=== PATIENT | female | born 1995 | race Caucasian/White ===

== ENCOUNTER → 2019-02-04 19:20 | Observation (INO) ==
[2019-02-04 15:57] VITALS: BP 118/74
[2019-02-04 16:31] LABS: Amphetamine Screen,Urine Negative ng/mL (Cutoff=1000); Barbiturate Screen,Urine Negative ng/mL (Cutoff=200); Benzodiazepines Screen,Urine Negative ng/mL (Cutoff=200); Cannabinoid Screen,Urine Negative ng/mL (Cutoff = 50); Cocaine Screen,Urine Negative ng/mL (Cutoff= 300); Opiate Screen,Urine Negative ng/mL (Cutoff=300); Phencyclidine Screen,Urine Negative ng/mL (Cutoff=25)
--- NOTE | 2019-02-04 16:39 | OB/GYN History & Physical ---
Date of Encounter: 02/04/19 Time of Encounter: 16:35 Assessment and Plan (1) 33 weeks gestation of Current visit: Yes Status: Acute 23yo female who presents s/p fall at 33+4wks GA 1. R/o Abruption - s/p fall on bottom (buttox) at 1200 - denies n/v/d, denies VB/LOF/contraction(S) - reports active movement - RH positive, no rhogam recommended - will hold on labs for now, no direct abdominal trauma - normal abdominal examination, slight MUS soreness appreciated - CEFM for 4 hours, if normal, will give patient precaution(s) Dispo: CEFM x 4 hr, if RNST for GA, will give precaution(S) and plan for DC to home. No vaginal bleeding. MD MARIA DEL CARMEN (2) Trauma during Current visit: Yes Status: Acute History of Present Illness Chief complaint: Patient fell HPI: Ms. RUBIO is a 23 year old female at 33+2 wks GA who presents after concern for falling UTD PNC with Dr. Savage, was seen in office this morning. Patient presented for JOSE ANTONIO visit and was doing well. Active fetus, denied VB/LOF/contraction(s). Good FM at that time. She called after falling around noon. Presented to office again at 3PM and was scheduled to see Dr. Riddle. Reported to have fallen on her bottom directly, and now is having discomfort circumferentially surrounding abdomen. Still with movement. PLan to keep patient for at least 4hr of CEFM. RH positive, no rhogam recommended. Past Med Surg Social Fam HX - Past Medical History Medical history: no medical history Psychiatric history: no psych history - Past Surgical History Surgical History: other Additional surgical history: wisdom teeth - Social History Smoking Status: Never smoker Alcohol use: none Drug use: none - Family History Mother Age: 51 Living Status: Still Living Hx Family Cardiac Disorders: No Hx Family Respiratory Disorders: No Hx Family Cancer: No Hx Family GI Disorders: No Hx Family Genitourinary Disorders: No Hx Family Endocrine Disorder: No Hx Family Musculoskeletal Disorders: No Hx Family Neuromuscular Disorders: No Hx Family Neurologic Disorders: No Hx Family HEENT Disorders: No Hx Family Autoimmune Disorders: No Hx Family Reproductive Disorders: No Hx Family Psychosocial Disorders: No Hx Family Medical Disorders: No Obstetrical History - Pregnancies : 1 Medications and Allergies Vitamin Tablet 1 / PO DAILY 02/04/19 [History] Allergy/AdvReac Type Severity Reaction Status Date / Time No Known Allergies Allergy Verified 02/04/19 15:57 Exam - Vital Signs Vital signs: Initial Vital Signs Temp Pulse Resp BP Pulse Ox 99.4 F 98 14 118/74 99 02/04/19 15:51 02/04/19 15:51 02/04/19 15:51 02/04/19 15:51 02/04/19 15:51 - Constitutional Constitutional: well developed, well nourished, no acute distress, average body habitus - HEENT HEENT: Normocephaly, Mucus Membranes Moist - Neck Neck exam: full ROM - Cardiovascular Cardiovascular exam: RRR - Abdomen Abdomen: Present: bowel sounds normal - Vagina Vagina: Present: normal moisture - Uterus Uterus exam: Present: normal size, normal contour - Anus/Rectum Anus/Rectum: Present: normal perianal skin, heme negative Results All other labs normal. - VTE Reasons for not Prescribing Prophylaxis: Treatment not Indicated - Low risk for VTE
[~2019-02-04 19:20] MED LIST: Ringers Solution, Lactated 1,000 ML IVC ONE; Ringers Solution, Lactated 1,000 ML IVC SCH; Ringers Solution, Lactated 1,000 ML ONE
== END | disposition home or self-care (01) ==
LOC: 1NENULAB
PROVIDERS: ADMIT Registered Nurse; ATTEND Registered Nurse

== ENCOUNTER → 2019-03-14 18:45 | Observation (INO) ==
--- NOTE | 2019-03-14 18:39 | OB/GYN Progress Note ---
Date of Encounter: 03/14/19 Time of Encounter: 18:39 - Assessment and Plan (1) Encounter for suspected PROM, with rupture of membranes not found Current Visit: Yes Status: Acute SSE show thick white normal discharge of ferning negative. Discharged home with labor and when to return to triage precautions. Subjective - Subjective Interval history: Pt states felt more leaking of fluid during [facility] today and some when standing since. Reports good movement, denies vaginal bleeding or leaking of fluid Antepartum ROS: loss of fluid, vaginal bleeding, movement normal, contractions Objective - Vital Signs Vital Signs: Intake and Output 03/14/19 03/14/19 03/14/19 07:59 15:59 23:59 Other: Weight 93.3 kg Patient Weight 03/14/19 23:59 Weight 93.3 kg - Exam FHR: auscultation normal Cervical dilation: 1.5/80/-2
[2019-03-14 18:45] LABS: Amphetamine Screen,Urine Negative ng/mL (Cutoff=1000); Barbiturate Screen,Urine Negative ng/mL (Cutoff=200); Benzodiazepines Screen,Urine Negative ng/mL (Cutoff=200); Cannabinoid Screen,Urine Negative ng/mL (Cutoff = 50); Cocaine Screen,Urine Negative ng/mL (Cutoff= 300); Opiate Screen,Urine Negative ng/mL (Cutoff=300); Phencyclidine Screen,Urine Negative ng/mL (Cutoff=25)
== END | disposition home or self-care (01) ==
LOC: 1NENULAB
PROVIDERS: ADMIT Advanced Practice Midwife; ATTEND Advanced Practice Midwife

== ENCOUNTER 2019-03-24 12:59 | Inpatient (IN) ==
[2019-03-24] MEDS ORDERED: Lidocaine 1% 20 ML MDV INFILT PRN (13:26)
[2019-03-24] MEDS ORDERED: *HR* Nalbuphine 10 MG/ML AMPUL IVP PRN (13:26)
[2019-03-24] MEDS ORDERED: Naloxone 0.4 MG/ML INJ IVP PRN (13:26)
[2019-03-24] MEDS ORDERED: miSOPROStol 25 MCG TABLET PO PRN (13:26)
[2019-03-24] MEDS ORDERED: Metoclopramide 10 MG/2 ML VIAL IVP PRN (13:26)
[2019-03-24] MEDS ORDERED: Famotidine 20 MG/2 ML VIAL IVP PRN (13:26)
[2019-03-24] MEDS ORDERED: Ringers Solution, Lactated 1,000 ML IVC SCH (13:30)
[2019-03-24] MEDS ORDERED: Oxytocin 20 units/ LR 1000 mL 20 UNIT/1,000 ML BAG IVC SCH (13:30)
[2019-03-24 14:06] LABS: Basophils % 0.5 %; Eosinophils % 0.5 %; Hematocrit 35.5 % (35.3-44.9); Hemoglobin 12.1 g/dL (11.5-15.4); Immature Granulocytes % 1.7 % (0-4); Lymphocytes # 1.5 K/mcL (0.6-4.6); Lymphocytes % 18.4 %; Mean Corpuscular HGB Conc 34.1 g/dL (31.6-35.5); Mean Corpuscular Hemoglobin 33.2 pg (28.0-33.3); Mean Corpuscular Volume 97.3 fL (83.0-100.0); Mean Platelet Volume 12.7 fL (9.4-12.4); Monocytes # 0.6 K/mcL (0.0-1.3); Monocytes % 7.2 %; Platelet Count 164 K/mcL (140-400); Red Blood Count 3.65 M/mcL (3.82-4.97); Red Cell Distribution Width 13.2 % (11.5-14.5); Segmented Neutrophils % 71.7 %; White Blood Count 8.4 K/mcL (4.3-11.1)
[2019-03-24 14:20] LABS: Amphetamine Screen,Urine Negative ng/mL (Cutoff=1000); Barbiturate Screen,Urine Negative ng/mL (Cutoff=200); Benzodiazepines Screen,Urine Negative ng/mL (Cutoff=200); Cannabinoid Screen,Urine Negative ng/mL (Cutoff = 50); Cocaine Screen,Urine Negative ng/mL (Cutoff= 300); Opiate Screen,Urine Negative ng/mL (Cutoff=300); Phencyclidine Screen,Urine Negative ng/mL (Cutoff=25)
--- NOTE | 2019-03-24 15:12 | OB/GYN History & Physical ---
Date of Encounter: 03/24/19 Time of Encounter: 15:10 Assessment and Plan (1) 40 weeks gestation of Current visit: Yes Status: Acute Admit for IOL at 40w1d due to Category II tracing in office (2) Encounter for planned induction of labor Current visit: Yes Status: Acute Sent from Dr. Savage at 40w1d for IOL due to heart rate decels in the office today. - PO Cytotec if not juan carlos regularly - Double cervical lorenzo balloon placed without difficulty. 60ml sterile water instilled in uterine balloon, 40 ml instilled in vaginal balloon - Recheck cervix in 4 hours - AROM when appropriate - IV Nubain or Epidural if/when desired - Anticipate (3) NST (non-stress test) reactive Current visit: No Status: Acute FHR 140 bpm, moderate variability, +15x15 accels, no decels since arrival. History of Present Illness Chief complaint: IOL at 40w1d HPI: Ms. Jain is a 23 year old female who presents today for IOL at 40w1d due to decelerations on office NST today. She does report positive movement and denies vaginal bleeding and fluid leakage. We discussed cervical ripening with double lorenzo balloon and patient is agreeable to that. Her has been uncomplicated thus far. She is a patient of Dr. Savage. Blood type A+ GBS negative HBSAG negative T. Pall negative Rubella Immune Varicella Immune Hep C negative Past Med Surg Social Fam HX - Past Medical History Source: patient Medical history: no medical history Psychiatric history: no psych history - Past Surgical History Surgical History: other Additional surgical history: wisdom teeth - Social History Smoking Status: Never smoker Smokeless Tobacco Status: No Alcohol use: none Drug use: none Current living situation: Home - Independent Activity Level: Independent ambulation Recent Out of Country Travel Within the Last 8 Weeks: No Exposure or Possible Exposure to Illness During Travel: No - Family History Mother Adopted: No Living Status: Still Living Hx Family Cardiac Disorders: No Hx Family Respiratory Disorders: No Hx Family Cancer: No Hx Family GI Disorders: No Hx Family Genitourinary Disorders: No Hx Family Endocrine Disorder: No Hx Family Musculoskeletal Disorders: No Hx Family Neuromuscular Disorders: No Hx Family Neurologic Disorders: No Hx Family HEENT Disorders: No Hx Family Autoimmune Disorders: No Hx Family Reproductive Disorders: No Hx Family Psychosocial Disorders: No Hx Family Medical Disorders: No Obstetrical History - Pregnancies : 1 Para: 0 Term: 0 : 0 Ab's: 0 Livin Medications and Allergies Vitamin Tablet 1 tab PO DAILY 02/04/19 [History] Allergy/AdvReac Type Severity Reaction Status Date / Time No Known Allergies Allergy Verified 02/04/19 15:57 Review of System OB All systems PM: reviewed and no additional remarkable complaints except as stated Exam - Constitutional Constitutional: well developed, well nourished, no acute distress, average body habitus - HEENT HEENT: Normocephaly, Mucus Membranes Moist - Neck Neck exam: full ROM - Lungs Respiratory exam: CTAB - Cardiovascular Cardiovascular exam: RRR, +S1, +S2 - Breasts Breast: bilateral: normal - Abdomen Abdomen: Present: bowel sounds normal, gravid, non tender - Extremities Extremities exam: full ROM, normal capillary refill, normal inspection - Vulva Vulva: bilateral: normal - Vagina Vagina: Present: normal moisture - Cervix Dilation: 2 (1.5) Effacement: 80 Station: -1 - Uterus Uterus exam: Present: normal size - Anus/Rectum Anus/Rectum: Present: normal perianal skin Results Result Diagrams: 03/24/19 13:50 Abnormal lab results RBC 3.65 M/mcL (3.82-4.97) L 03/24/19 13:50 MPV 12.7 fL (9.4-12.4) H 03/24/19 13:50 All other labs normal. - VTE Reasons for not Prescribing Prophylaxis: Treatment not Indicated - Low risk for VTE
--- NOTE | 2019-03-24 18:35 | Anesthesia Evaluation PreOp ---
Date of Encounter: 03/24/19 Time of Encounter: 18:33 - Past History Planned Operation: sari Cardiac History: Denies any Significant Hx Pulmonary History: Denies Any Significant HX PRODUCTION POTTER History: Denies Any Significant HX Other Medical History: GERD Anesthesia History: No Prior Anesthetic Complications : Yes Test: Positive Alcohol Use: none Drug use: none Medications and Allergies Vitamin Tablet 1 tab PO DAILY 02/04/19 [History] Allergy/AdvReac Type Severity Reaction Status Date / Time No Known Allergies Allergy Verified 02/04/19 15:57 - Meds/Allergy Pre-op Review Medications Reviewed: Yes Allergies Reviewed: Yes Beta Blockers on Current Med List: No Anesthesia Results - Labs 03/24/19 13:50 Anesthesia Exam 128/78 88 16 fht 133 Height: 5'4" Weight: 209 NPO (# of Hours): 3 Pain Scale: 2 Pain Scale Used: Numeric (1 - 10) - HEENT Pupil (Motor): Pupils equal Mallampati: II Teeth: Normal (braces) Oral Opening: Greater than 3 - PRODUCTION POTTER LOC: Oriented PRODUCTION POTTER Motor: Normal RUE, Normal LUE, Normal RLE, Normal LLE, Normal Face PRODUCTION POTTER Sensory: Normal: RUE, LUE, RLE, LLE, Face - Cardiac Rhythm: Regular Murmur: None - Pulmonary Breath Sounds: bilateral Clear Respiratory Effort: Symmetrical Anesthesia Assess/Plan ASA Score: 2 Level of consciousness: Cooperative Anesthetic Plan: Epidural (risks discussed questions answered, consented) Autologous Blood: No Monitoring Plan: Standard Monitors Recovery Plan: Other
[2019-03-24] MEDS ORDERED: *HR* FentaNYL (PF) 100 MCG/2 ML VIAL EP ONE (18:37)
[2019-03-24] MEDS ORDERED: Epidural Premix (fent/bupiv) 110 ML EP SCH (18:45)
--- NOTE | 2019-03-24 19:19 | OB Labor Progress Note ---
Date of Encounter: 03/24/19 Time of Encounter: 19:17 Labor Progress Note - Subjective Subjective: Patient coping well with contractions. Only complains of slight back discomfort. - Vital Signs Vital Signs: WNL - Cervix Cervix: 6/80/-2 - Heart Tones Heart Tones: FHR 130 bpm, moderate variability, +15x15 accels, no decels. - [place]: 2-4 cm - Interventions Interventions: SVE Cervical lorenzo balloon removed. - Plan Plan: Discussed next options with patient, Pitocin and AROM discussed. Patient agrees to proceed with Pitocin at this time. Epidural if/when patient desires AROM when appropriate Anticipate
--- NOTE | 2019-03-24 21:39 | Event Note ---
Date of Encounter: 03/24/19 Time of Encounter: 21:39 Offered AROM at this time and patient declines. Will perform SVE around 2300 and possibly AROM at that time.
--- NOTE | 2019-03-24 22:17 | OB Labor Progress Note ---
Date of Encounter: 03/24/19 Time of Encounter: 22:14 Labor Progress Note - Subjective Subjective: Patient coping well with contractions. Ambulating in room, using birthing ball for comfort. - Cervix Cervix: 6/80/-1 - Heart Tones Heart Tones: FHR 130 bpm, moderate variability, +15x15 accels, early decels. - [place]: 2-3.5 minutes - Interventions Interventions: SVE AROM for moderate amount of clear fluid. - Plan Physician notified: Yes Physician notified details: Dr. Chance aware of AROM clear fluid and SVE Plan: Continue Pitocin and increase as necessary to maintain ctx q 2-3 minutes Epidural or IV pain medication if patient desires. Anticipate
[2019-03-25] MEDS ORDERED: *HR* FentaNYL (PF) 100 MCG/2 ML VIAL ONE (00:34)
--- NOTE | 2019-03-25 00:58 | Anesthesia Procedures ---
Date of Encounter: 03/25/19 Time of Encounter: 00:56 Procedures: Anesthesia - Epidural/Spinal Patient ID/Chart reviewed: Yes Patient examined: Yes OB Eval: Gestational age: 40 OB Eval: : 1 OB Eval: Hx Para: 0 OB Eval: Dilated at (cm): 5 OB Eval: Contractions: Non-stressed pattern Consent Obtained: Yes Supplemental Oxygen: None/Room Air Site Prep: Aseptic Technique, Sterile prep and drape, 0.5% Chlorhexidine/Alcohol Patient position: upright Local Anesthetic: Lidocaine 1% Amount of Local Anesthetic used: 3 Touhy Needle Gauge: 18 Touhy Needle Depth (cm): 6 Catheter Depth at Skin (cm): 15 Test Dose (1.5% Lido + Epi): Volume given (mls): 3 Test Dose Result: Negative Loading Dose: Fentanyl (mcg): 100 Loading Dose: Other: Rop 0.2% 5cc Loading Dose Administered: Thru Touhy Needle Infusion Med: 0.125% Bupivacaine w/ 2 mcg/ml Fentanyl Infusion Rate (mls/hr): 15 (pcea 5cc q30") Catheter Secured in Place: Tegaderm Interspace Used: L2-L3 Loss of Resistance (LILLI): Yes Blood: No CSF: No Paresthesia: No Procedure: aseptic, tolerated well, VSS, effective Vitals + FHT's: 109/78 88 16 143
[2019-03-25] MEDS ORDERED: Ibuprofen 600 MG TABLET PO ONE (06:10)
--- NOTE | 2019-03-25 06:21 | OB/GYN Procedure Note ---
Delivery - Delivery Date: 03/25/19 Provider: Steph Pearson Intrapartum events: none Delivery induction: lorenzo, misoprostol Delivery augmentation: rupture of membranes, pitocin Delivery monitor: external uterine, internal FHT Anesthesia: epidural Quantitated Blood Loss: 100 - Infant (s) Infant A Delivery Date: 03/25/19 Delivery Time: 05:17 Presentation: vertex Position: SCARLET Route of delivery: Gender: Male Viability: Viable Pounds: 9 Ounces: 2 Weight Gram: 4135 kg at 1 minute: 7 at 5 mins: 9 Shoulder Dystocia: not encountered Specimens collected: cord blood Placenta: spontaneous Cord: nuchal cord, 3 umbilical vessels, nuchal reduced - Repair Episiotomy: none Laceration Description: Periurethral, Vaginal - Complications Delivery complications: none Delivery comments: Called to room for patient progressing with pushing. Prolonged was noted, offered patient an episiotomy but she declined. Under maternal effort, s pontaneous delivery of viable male infant over intact perineum. Infant placed on maternal abdomen for drying and stimulation. Cord clamped and cut after pulsation ceased. Upon inspection of vagina, bilateral second degree vaginal lacerations were noted. Both repaired with 3-0 Vicryl. Right periurethral laceration noted, repaired with 4-0 Vicryl. Spontaneous delivery of intact placenta, EBL 100 mL's. Nuchal cord x 1 easily reduced. No shoulder dystocia or meconium encountered. Mother and in kangaroo care for 2 hour recovery. - Disposition Mom disposition: stable in LDR [place] disposition: stable in LDR
[2019-03-25] MEDS ORDERED: Benzocaine/Menthol 56 GM AEROSOL SPRAY TP PRN (07:37)
[2019-03-25] MEDS ORDERED: Oxytocin 20 units/ LR 1000 mL 20 UNIT/1,000 ML BAG IVC SCH (07:37)
[2019-03-25] MEDS ORDERED: Acetaminophen 325 MG TABLET PO PRN (07:37)
[2019-03-25] MEDS ORDERED: Lanolin 7 G OINT...G. TP PRN (07:37)
[2019-03-25] MEDS ORDERED: *HR* HYDROcodone/Acet 5/325 mg TABLET PO PRN (07:37)
[2019-03-25] MEDS ORDERED: Prenatal Vit/FA 1 EACH TABLET PO SCH (09:00)
[2019-03-25] MEDS: Ibuprofen 600 MG TABLET PO PRN (12:21)
[2019-03-26] MEDS: Ibuprofen 600 MG TABLET PO PRN ×2 (00:31→07:52)
[2019-03-26 08:39] VITALS: BP 106/60
--- NOTE | 2019-03-26 09:22 | Discharge Summary ---
Date of Encounter: 03/26/19 Time of Encounter: 09:20 - Discharge Diagnosis (1) Vaginal delivery Priority: Primary Status: Acute Comments: Feeling well Tolerating regular diet Pain well-controlled with by mouth pain meds Ambulating independently Voiding independently Lochia light Passing flatus, no BM yet Vital signs stable Discharge home today (2) Breast feeding status of mother Priority: Secondary Status: Acute Comments: Community resources provided - Discharge Medications Prescriptions: New Acetaminophen [Tylenol] 650 mg PO Q6HR PRN tablet PRN Reason: Mild Pain Ibuprofen [Motrin] 600 mg PO Q6HR PRN #30 tablet PRN Reason: Cramping Benzocaine/Menthol [place] [Dermoplast [place]] 1 appl TP QID PRN aerosol PRN Reason: See Comments Docusate [Colace] 100 mg PO BID #30 capsule Lanolin [Lansinoh] 1 appl TP TID PRN oint...g. PRN Reason: Sore Nipples Continued Vitamin Tablet 1 tab PO DAILY Home Medications: Vitamin Tablet 1 tab PO DAILY 02/04/19 [History] Acetaminophen [Tylenol] 650 mg PO Q6HR PRN tablet 03/26/19 [Rx] Benzocaine/Menthol [place] [Dermoplast [place]] 1 appl TP QID PRN aerosol 03/26/19 [Rx] Docusate [Colace] 100 mg PO BID #30 capsule 03/26/19 [Rx] Ibuprofen [Motrin] 600 mg PO Q6HR PRN #30 tablet 03/26/19 [Rx] Lanolin [Lansinoh] 1 appl TP TID PRN oint...g. 03/26/19 [Rx] Allergies/Adverse Reactions: Allergy/AdvReac Type Severity Reaction Status Date / Time No Known Allergies Allergy Verified 02/04/19 15:57 Data Procedures and tests throughout hospitalization: Laboratory Tests 03/24/19 03/24/19 13:50 13:50 WBC 8.4 RBC 3.65 L Hgb 12.1 Hct 35.5 MCV 97.3 MCH 33.2 MCHC 34.1 RDW 13.2 Plt Count 164 MPV 12.7 H Immature Gran % 1.7 Seg Neutrophils % 71.7 Lymphocytes % 18.4 Monocytes % 7.2 Eosinophils % 0.5 Basophils % 0.5 Neutrophils # 6.0 Lymphocytes # 1.5 Monocytes # 0.6 Eosinophils # 0.0 Basophils # 0.0 Urine Opiates Screen Negative Ur Buprenorphine Scrn Negative Ur Barbiturates Screen Negative Ur Phencyclidine Scrn Negative Ur Amphetamines Screen Negative U Benzodiazepines Scrn Negative Urine Cocaine Screen Negative U Marijuana (THC) Screen Negative Ur Drug Screen Interp See Below Date of admission: 03/24/19 12:59 Primary care physician: PCP TRISTIAN Consults: 03/25/19 07:37 Consult to Tab Cutter [CONS] Routine Comment: Vaginal delivery, consult needed Discharging clinician: Pretty Lemus Anticipated date of discharge: 03/26/19 - Patient Status Disposition: Home, Self-Care Condition: Good Functional capacity at discharge: independent ambulation Overall status at discharge: patient is progressing back to baseline - Discharge Instructions Follow Up With: NONE,PCP [Primary Care Provider] - Pretty Savage MD [Partnered Physician] - - Diet and Activity Activity: increase activity as tolerated Diet: regular diet Hospital Course Reason for admission: induction of labor, IUP at term Delivery: Episiotomy: none Laceration: vaginal side wall Other procedures: none complications: none Discharge diagnosis: IUP at term delivered [place] baby: male Time Attestation: Total time spent providing and/or coordinating discharge services: Time Spent: Less than 30 minutes Exam - Constitutional Vitals: Temp Pulse Resp BP Pulse Ox 98.5 F 85 16 106/60 98 03/26/19 07:30 03/26/19 07:30 03/26/19 07:30 03/26/19 07:30 03/26/19 03:40 General appearance IM: A&O X 3, pleasant, no acute distress, answers questions appropriately - Respiratory Respiratory exam: Present: CTAB - Cardiovascular Cardiovascular exam IM: Present: RRR, +S1, +S2 - GI/Abdominal GI/Abdominal exam IM: hyperactive bowel sounds, normal bowel sounds, no peritoneal signs - Rectal Rectal exam: deferred - Uterine Tone: Firm Uterus Position: 2 Fingers Below Umbilicus, Midline - Extremities Exam Extremities exam IM: Present: full ROM, normal capillary refill, normal inspection, radial pulses palpable and symmetrical - Neurological Exam Neurological exam: alert, CN II-XII intact, normal gait, oriented X3, reflexes normal, no focal deficits, strengths equal and symetr throughout - Psychiatric Additional comments: Patient denies history of anxiety and depression. Signs and symptoms of depression discussed with patient and partner and both verbalized understanding of when to seek help.
== END 2019-03-26 15:49 | disposition home or self-care (01) | DRG 560 ==
LOC: 1NENULAB → OBSVTOIN 12:59 → 1NENUOBS 03-25 08:44
PROVIDERS: ADMIT Registered Nurse; ATTEND Registered Nurse

== ENCOUNTER 2020-08-18 05:00 | Inpatient (IN) ==
[2020-08-18] MEDS ORDERED: Metoclopramide 10 MG/2 ML VIAL IVP ONE (06:39)
[2020-08-18] MEDS ORDERED: Famotidine 20 MG/2 ML VIAL IVP ONE (06:39)
[2020-08-18] MEDS ORDERED: Ringers Solution, Lactated 1,000 ML IVC ONE (06:39)
[2020-08-18] MEDS ORDERED: Ringers Solution, Lactated 1,000 ML IVC SCH ×3 (06:45→12:53)
[2020-08-18] MEDS ORDERED: Oxytocin 20 units/ LR 1000 mL 20 UNIT/1,000 ML BAG IVC ONE (07:12)
[2020-08-18] MEDS ORDERED: *HR* Morphine Sulfate/PF 10 MG/10 ML AMPUL ONE (07:19)
[2020-08-18] MEDS ORDERED: *HR* FentaNYL (PF) 100 MCG/2 ML VIAL ONE (07:19)
[2020-08-18] MEDS ORDERED: EPHEDrine 50 MG/ML VIAL ONE (07:19)
[2020-08-18 07:20] LABS: Basophils # 0.1 K/mcL (0.0-0.2); Basophils % 0.7 %; Eosinophils % 0.4 %; Hematocrit 36.1 % (35.3-44.9); Hemoglobin 12.1 g/dL (11.5-15.4); Immature Granulocytes % 1.6 % (0-4); Mean Corpuscular HGB Conc 33.5 g/dL (31.6-35.5); Mean Corpuscular Hemoglobin 32.3 pg (28.0-33.3); Mean Corpuscular Volume 96.3 fL (83.0-100.0); Mean Platelet Volume 11.8 fL (9.4-12.4); Monocytes # 0.6 K/mcL (0.0-1.3); Monocytes % 6.6 %; Neutrophils # 6.3 K/mcL (1.6-8.9); Platelet Count 152 K/mcL (140-400); Red Blood Count 3.75 M/mcL (3.82-4.97); Red Cell Distribution Width 13.2 % (11.5-14.5); Segmented Neutrophils % 68.7 %; White Blood Count 9.1 K/mcL (4.3-11.1)
[2020-08-18] MEDS ORDERED: *HR* Phenylephrine 10 MG/ML VIAL ONE (07:20)
[2020-08-18] MEDS ORDERED: ceFAZolin 2,000 MG in 0.9 % Sodium Chloride 100 ML IVPB ONE (07:20)
[2020-08-18] MEDS ORDERED: Acetaminophen IV 1,000 MG/100 ML BAG IVPB ONE (07:20)
[2020-08-18] MEDS ORDERED: Ondansetron 4 MG/2 ML VIAL ONE (07:20)
[2020-08-18] MEDS ORDERED: Promethazine 6.25 MG in Water for inj. (sterile) 20 ML IVPB PRN (07:39)
[2020-08-18] MEDS ORDERED: Ondansetron 4 MG/2 ML VIAL IVP PRN ×2 (07:39→12:53)
[2020-08-18] MEDS ORDERED: Naloxone 0.4 MG/ML INJ IVP PRN (07:39)
[2020-08-18] MEDS ORDERED: *HR* OxyCODONE/APAP 5/325 TABLET PO PRN (07:39)
[2020-08-18] MEDS ORDERED: Oxytocin 20 units/ LR 1000 mL 40 UNIT/2,000 ML BAG IVC ONE (07:41)
[2020-08-18 08:43] LABS: Amphetamine Screen,Urine Negative ng/mL (Cutoff=1000); Barbiturate Screen,Urine Negative ng/mL (Cutoff=200); Benzodiazepines Screen,Urine Negative ng/mL (Cutoff=200); Cannabinoid Screen,Urine Negative ng/mL (Cutoff = 50); Cocaine Screen,Urine Negative ng/mL (Cutoff= 300); Opiate Screen,Urine Negative ng/mL (Cutoff=300); Phencyclidine Screen,Urine Negative ng/mL (Cutoff=25)
[2020-08-18] MEDS: *HR* HYDROmorphone (PF) 1 MG/ML SYRINGE IVP PRN ×2 (10:42→11:38)
[2020-08-18] MEDS ORDERED: Metoclopramide 10 MG/2 ML VIAL IVP PRN (12:53)
[2020-08-18] MEDS ORDERED: Simethicone 80 MG TAB.CHEW PO PRN (12:53)
[2020-08-18] MEDS ORDERED: Oxytocin 20 units/ LR 1000 mL 20 UNIT/1,000 ML BAG IVC SCH ×2 (12:53)
[2020-08-18] MEDS ORDERED: Acetaminophen 325 MG TABLET PO SCH (12:53)
[2020-08-18] MEDS ORDERED: Sennosides 8.6 MG TABLET PO PRN (12:53)
[2020-08-18] MEDS ORDERED: Rho Immune Globulin 1,500 UNIT SYRINGE IM ONE (12:53)
[2020-08-18] MEDS: Ibuprofen 600 MG TABLET PO SCH ×2 (18:37→23:35)
[2020-08-18] MEDS: Acetaminophen 325 MG TABLET PO SCH (21:44)
[2020-08-19] MEDS: *HR* OxyCODONE Immed Rel 5 MG TABLET PO PRN ×4 (02:11→14:54)
[2020-08-19] MEDS: Acetaminophen 325 MG TABLET PO SCH ×2 (04:03→10:12)
[2020-08-19 04:25] LABS: Basophils % 0.3 %; Eosinophils % 0.3 %; Hematocrit 35.8 % (35.3-44.9); Hemoglobin 12.1 g/dL (11.5-15.4); Immature Granulocytes % 0.9 % (0-4); Lymphocytes # 1.4 K/mcL (0.6-4.6); Mean Corpuscular HGB Conc 33.8 g/dL (31.6-35.5); Mean Corpuscular Hemoglobin 33.2 pg (28.0-33.3); Mean Corpuscular Volume 98.4 fL (83.0-100.0); Mean Platelet Volume 11.8 fL (9.4-12.4); Monocytes # 0.7 K/mcL (0.0-1.3); Monocytes % 5.9 %; Neutrophils # 9.5 K/mcL (1.6-8.9); Platelet Count 146 K/mcL (140-400); Red Blood Count 3.64 M/mcL (3.82-4.97); Red Cell Distribution Width 13.2 % (11.5-14.5); Segmented Neutrophils % 80.6 %; White Blood Count 11.7 K/mcL (4.3-11.1)
[2020-08-19] MEDS: Ibuprofen 600 MG TABLET PO SCH (06:23)
[2020-08-19 07:45] VITALS: BP 110/73
[2020-08-19] MEDS ORDERED: Prenatal Vit/FA 1 EACH TABLET PO SCH (09:00)
[2020-08-19] MEDS ORDERED: NON-FORMULARY MEDICATION 1 EACH EACH (Prenatal Vitamin Tablet 1 TAB) PO SCH (09:00)
== END 2020-08-19 15:41 | disposition home or self-care (01) ==
LOC: 1NENULAB 05:56 → 1NENUOBS 12:52
PROVIDERS: ADMIT Obstetrics & Gynecology; ATTEND Obstetrics & Gynecology